=== PATIENT | female | born 1995 | race African-American/Black ===

== ENCOUNTER 2018-10-31 11:28 | Emergency (ER) | payer OTHER ==
[2018-10-31] MEDS ORDERED: Lidocaine 1% w/Epinephrine 1:100K 20 ML VIAL ONE (11:58)
[2018-10-31] MEDS ORDERED: cefTRIAXone\\ROCEPHIN 250 MG VIAL ONE (12:36)
[2018-10-31] MEDS ORDERED: metroNIDAZOLE 250 MG TAB ONE (12:36)
[2018-10-31] MEDS ORDERED: Lidocaine 1% (PF) 30 ML VIAL ONE (12:36)
[2018-10-31] MEDS ORDERED: Azithromycin 250 MG TAB ONE (12:36)
[2018-11-02 22:19] LABS: Chlamydia by PCR Not Detected (NotDetected); GC by PCR Not Detected (NotDetected)
== END 2018-10-31 12:48 | disposition home or self-care (01) ==
LOC: ERS 11:28
DX: N75.1 Abscess of Bartholin's gland (principal); N89.8 Other specified noninflammatory disorders of vagina; L05.01 Pilonidal cyst with abscess
CPT/HCPCS: 56420; 87480; 87491; 87510; 87591; 87660; 96372; J0696; J2001